=== PATIENT | male | born 1960 | race Two or more races ===

== ENCOUNTER 2016-08-23 16:07 | Emergency (ER) | payer OTHER ==
--- NOTE | 2016-08-23 17:04 | Emergency Department Record ---
History of Present Illness - General Chief complaint: Eye Problem Stated complaint: GOT A [employer] IN [employer] EYE Time Seen by Provider: 08/23/16 16:53 Source: Patient Mode of Arrival: Ambulatory Limitations: No limitations - History of Present Illness Initial comments: The patient is here due to L eye irritation for one day. He was at work yesterday and was wearing safety goggles and did get one drop of a cleaning agent in the L eye. It burned immediately and he did flush the eye out extensively. Now today the L eye is still feeling irritated. He denies any pain or visual changes. chief complaint: Eye pain Onset/Timin -: Days(s) Onset Description: Sudden Location: Left eye Place: Work If Injury: Chemical exposure Eye Symptoms: Discharge, Foreign body sensation Severity: Mild If Pain, Quality: Other Consistency: Constant Associated Symptoms: None Treatments Prior to Arrival: Irrigated eye - Related Data Visual acuity (L) = 20/: 20 Visual acuity (R) = 20/: 20 With correction: Yes Hx Tetanus Toxoid Vaccination: Yes Year of Tetanus Vaccination: 2013 Patient Tetanus UTD (within 5 yrs): Yes Home Medications Medication Instructions Recorded Confirmed Last Taken Omeprazole [Prilosec] 20 mg PO DAILY 01/25/14 08/23/16 12/10/15 Previous Rx's Medication Instructions Recorded Erythromycin Base [Erythromycin 1 apply AFFEYE QID #1 tube 08/23/16 OPTH Ointment] Allergies Allergy/AdvReac Type Severity Reaction Status Date / Time No Known Drug Allergies Allergy Verified 01/25/14 04:05 Travel Screening - Travel/Exposure Within Last 30 Days Have you traveled within the last 30 days?: No Review of Systems Constitutional: Denies: Chills, Fever Eyes: Reports: Eye discharge (very mild L eye.). Denies: Eye pain Past Medical History - SOCIAL HISTORY Smoking Status: Never smoker Alcohol Use: None Drug Use: None - RESPIRATORY Hx Respiratory Disorders: No - CARDIOVASCULAR Hx Cardio Disorders: No - NEURO Hx Neuro Disorders: No - GI Hx GI Disorders: Yes Hx Reflux: Yes - Hx Genitourinary Disorders: No - ENDOCRINE Hx Endocrine Disorders: No - MUSCULOSKELETAL Hx Musculoskeletal Disorders: No - PSYCH Hx Psych Problems: Yes Hx Anxiety: Yes - HEMATOLOGY/ONCOLOGY Hx Hematology/Oncology Disorders: No Family Medical History Any Significant Family History?: No Physical Exam - General General Appearance: Alert, Oriented x3, Cooperative, No acute distress - Head Head exam: Atraumatic, Normocephalic, Normal inspection - Eye Eye exam: Normal appearance, PERRL, Conjunctival injection (There is mild injection to the L eye. There is very mild uptake measuring 1x1 mm at the very edge of the cornea in the 3:00 position. ), EOMI Visual acuity (L) = 20/: 20 Visual acuity (R) = 20/: 20 With correction: Yes - ENT ENT exam: Normal exam, Mucous membranes moist, Normal external ear exam, Normal orophraynx, TM's normal bilaterally Course Vital Signs 08/23/16 16:34 Temperature 98.5 F Pulse Rate 76 Respiratory 20 Rate Blood Pressure 151/98 Pulse Ox 96 - Reevaluation(s) Reevaluation #1: I did explain to the patient that the cornea has no definite cordova on it. He is to use the eye ointment as directed and F/U with his Work Occupational health provider tomorrow if not better. 08/23/16 17:01 Disposition Disposition: Discharge Clinical Impression: Chemical exposure of eye Disposition: Home, Self-Care Condition: (2) Stable Instructions: Corneal Abrasion (ED) Additional Instructions: Please use the Emycin ointment as directed. Please see your Work Occupational Health provider as directed tomorrow if not better. Prescriptions: Erythromycin Base [Erythromycin OPTH Ointment] 1 apply AFFEYE QID #1 tube Forms: Patient Portal Access Time of Disposition: 17:04
== END 2016-08-23 17:14 | disposition home or self-care (01) ==
LOC: ER 16:07
DX: T65.891A Toxic effect of other specified substances, accidental (unintentional), initial encounter (principal); H57.12 Ocular pain, left eye; Y99.0 Civilian activity done for income or pay
CPT/HCPCS: 99283

== ENCOUNTER 2017-04-09 14:11 | Emergency (ER) | payer BC, OTHER ==
[2017-04-09] MEDS ORDERED: KETOROLAC 30 MG/ML VIAL IVP ONE (15:36)
[2017-04-09] MEDS ORDERED: 0.9 % SODIUM CHLORIDE 1,000 ML BAG IV ONE (15:36)
[2017-04-09] MEDS ORDERED: ONDANSETRON HCL IV 4 MG/2 ML VIAL IV ONE (15:36)
[2017-04-09 15:37] LABS: URINE APPEARANCE CLEAR; URINE BILIRUBIN NEGATIVE (NEGATIVE); URINE BLOOD MODERATE (NEGATIVE); URINE COLOR YELLOW; URINE GLUCOSE (UA) NEGATIVE (NEGATIVE); URINE KETONE NEGATIVE (NEGATIVE); URINE LEUKOCYTE ESTERASE NEGATIVE (NEGATIVE); URINE NITRITE NEGATIVE (NEGATIVE); URINE PROTEIN NEGATIVE (NEGATIVE); URINE UROBILINOGEN 0.2 E.U./dL (0.20 - 1.00)
[2017-04-09 15:47] LABS: URINE BACTERIA NONE SEEN; URINE EPITHELIAL CELLS 0 - 2 (FEW); URINE RBC >50 (NONE SEEN); URINE WBC 0 - 2 (0-2/hpf)
--- NOTE | 2017-04-09 16:00 | Emergency Department Record ---
History of Present Illness - General Chief complaint: Flank Pain Stated complaint: LOWER BACK PAIN/KIDNEY STONES Time Seen by Provider: 04/09/17 15:32 Source: Patient Mode of Arrival: Ambulatory Limitations: No limitations - History of Present Illness Initial comments: pt has severe l flank pain that had a sudden onset. he has been told in the past that he had a kiidney stone in the left kidney. he has never passed a stone. he was hurting so badly that he was shaking Onset/Timin -: Hour(s) Location: Left flank Radiation: None Severity: Moderate Severity scale (1-10): 9 Quality: Aching, Sharp, Stabbing Consistency: Constant Improves with: None Reports: Nausea/vomiting - Related Data Allergies Allergy/AdvReac Type Severity Reaction Status Date / Time No Known Drug Allergies Allergy Verified 04/09/17 15:27 Travel Screening - Travel/Exposure Within Last 30 Days Have you traveled within the last 30 days?: No - Travel/Exposure Within Last Year Have you traveled outside the [place] in the last year?: No - Additonal Travel Details Have you been exposed to anyone with a communicable illness?: No - Travel Symptoms Symptom Screening: None Review of Systems Reviewed: No additional complaints except as noted below Constitutional: Reports: As per HPI. Denies: Chills, Fever, Malaise, Night sweats, Weakness, Weight change Eyes: Reports: As per HPI. Denies: Eye discharge, Eye pain, Photophobia, Vision change ENT: Reports: As per HPI. Denies: Congestion, Dental pain, Ear pain, Epistaxis , Hearing loss, Throat pain Respiratory: Reports: As per HPI. Denies: Cough, Dyspnea, Hemoptysis, Stridor, Wheezes Cardiovascular: Reports: As per HPI. Denies: Arrhythmia, Chest pain, Dyspnea on exertion, Edema, Murmurs, Orthopnea, Palpitations, Paroxysmal nocturnal dyspnea, Rheumatic Fever, Syncope Endocrine: Reports: As per HPI. Denies: Fatigue, Heat or cold intolerance, Polydipsia, Polyuria Gastrointestinal: Reports: As per HPI. Denies: Abdominal pain, Constipation, Diarrhea, Hematemesis, Hematochezia, Melena, Nausea, Vomiting Genitourinary: Reports: As per HPI. Denies: Dysuria, Frequency, Hematuria, Incontinence, Retention, Testicular pain, Testicular mass, Urgency Musculoskeletal: Reports: As per HPI. Denies: Arthralgia, Back pain, Gout, Joint swelling, Myalgia, Neck pain Skin: Reports: As per HPI. Denies: Bruising, Change in color, Change in hair/ nails, Lesions, Pruritus, Rash Neurological: Reports: As per HPI. Denies: Abnormal gait, Confusion, Headache, Numbness, Paresthesias, Seizure, Tingling, Tremors, Vertigo, Weakness Psychiatric: Reports: As per HPI. Denies: Anxiety, Auditory hallucinations, Depression, Homicidal thoughts, Suicidal thoughts, Visual hallucinations Hematological/Lymphatic: Reports: As per HPI. Denies: Anemia, Blood Clots, Easy bleeding, Easy bruising, Swollen glands Past Medical History - SOCIAL HISTORY Smoking Status: Former smoker Alcohol Use: Rare Drug Use: None - RESPIRATORY Hx Respiratory Disorders: No - CARDIOVASCULAR Hx Cardio Disorders: No - NEURO Hx Neuro Disorders: No - GI Hx GI Disorders: Yes Hx Reflux: Yes - Hx Genitourinary Disorders: No - ENDOCRINE Hx Endocrine Disorders: No - MUSCULOSKELETAL Hx Musculoskeletal Disorders: No - PSYCH Hx Psych Problems: Yes Hx Anxiety: Yes - HEMATOLOGY/ONCOLOGY Hx Hematology/Oncology Disorders: No Family Medical History Any Significant Family History?: No Physical Exam - General General Appearance: Alert, Oriented x3, Cooperative, Mild distress - Head Head exam: Normal inspection - Eye Eye exam: Normal appearance, PERRL, EOMI Pupils: Normal accommodation - ENT ENT exam: Normal exam, Mucous membranes moist, Normal external ear exam, Normal orophraynx Ear exam: Normal external inspection. negative: External canal tenderness Nasal Exam: Normal inspection. negative: Discharge, Sinus tenderness Mouth exam: Normal external inspection, Tongue normal Teeth exam: Normal inspection. negative: Dental caries Throat exam: Normal inspection. negative: Tonsillar erythema, Tonsillar exudate - Neck Neck exam: Normal inspection, Full ROM. negative: Tenderness - Respiratory Respiratory exam: Normal lung sounds bilaterally. negative: Respiratory distress - Cardiovascular Cardiovascular Exam: Regular rate, Normal rhythm, Normal heart sounds - GI/Abdominal GI/Abdominal exam: Soft, Normal bowel sounds. negative: Tenderness - Rectal Rectal exam: Deferred - exam: Deferred - Extremities Extremities exam: Normal inspection, Full ROM, Normal capillary refill. negative: Tenderness - Back Back exam: Reports: Normal inspection, Full ROM. Denies: Muscle spasm, Rash noted, Tenderness - Neurological Neurological exam: Alert, CN II-XII intact, Normal gait, Oriented X3 - Psychiatric Psychiatric exam: Normal affect, Normal mood - Skin Skin exam: Dry, Intact, Normal color, Warm Course Vital Signs 04/09/17 15:20 Temperature 98.0 F Pulse Rate 101 H Respiratory 18 Rate Blood Pressure 155/92 Pulse Ox 97 Medical Decision Making - Lab Data Result diagrams: 04/09/17 16:03 04/09/17 16:03 Lab Results 04/09/17 Range/Units 15:30 Urine Color Yellow Urine Appearance Clear Urine pH 6.0 (5.0-8.0) Ur Specific Loyal 1.010 (1.002-1.030) Urine Protein Negative (NEGATIVE) Urine Glucose (UA) Negative (NEGATIVE) Urine Ketones Negative (NEGATIVE) Urine Blood Moderate (NEGATIVE) Urine Nitrite Negative (NEGATIVE) Urine Bilirubin Negative (NEGATIVE) Urine Urobilinogen 0.2 (0.20 - 1.00) E.U./dL Ur Leukocyte Esterase Negative (NEGATIVE) Urine RBC >50 (NONE SEEN) Urine WBC 0 - 2 (0-2/hpf) Ur Epithelial Cells 0 - 2 (FEW) Urine Bacteria None seen Disposition Disposition: Discharge Clinical Impression: Renal colic on left side, Renal lithiasis Hematuria Qualifiers: Hematuria type: unspecified type Qualified Code(s): R31.9 - Hematuria, unspecified Disposition: Home, Self-Care Condition: (1) Good Instructions: Kidney Stones (ED), Renal Colic (ED), How to Strain Your Urine ( ED) Additional Instructions: follow up with family doctor. return sooner if worse. push fluids. have repeat urine analysis next week Forms: Patient Portal Access Quality - Quality Measures Quality Measures: N/A - Blood Pressure Screening Does Patient Have Any of the Following: No Blood Pressure Classification: Hypertensive Reading Systolic Measurement: 155 Diastolic Measurement: 92 Screening for High Blood Pressure: < First Hypertensive BP, F/U Documented > [ [id number]] First Hypertensive Follow-up Interventions: Follow-up with rescreen GT 1 day and LT 4 weeks.
[2017-04-09 16:08] LABS: BASO % 0.3 % (0-6); EOS % 2.9 % (0-6); GRAN % 70.6 % (47-80); HEMATOCRIT 46.2 % (42.0-52.0); HEMOGLOBIN 15.7 gm/dl (14.0-18.0); LYMPH % 18.7 % (16-45); MEAN CORPUSCULAR HEMOGLOBIN 30.3 pg (27-33); MEAN PLATELET VOLUME 10.5 fl (7.4-10.4); MONO % 7.5 % (0-9); PLATELET COUNT 270 K/uL (130-400); RED BLOOD COUNT 5.19 M/uL (4.40-5.70); RED CELL DISTRIBUTION WIDTH 14.2 % (11.5-14.5); WHITE BLOOD COUNT W/O DIFF 7.2 K/uL (4.2-12.2)
[2017-04-09 16:20] LABS: BLOOD UREA NITROGEN 23 mg/dL (6-20); EST GLOMERULAR FILTRATION RATE > 60 mL/min
[2017-04-09 16:23] LABS: GLUCOSE,RANDOM 107 mg/dL (74-109)
--- NOTE | 2017-04-10 14:23 | CT SCAN REPORT ---
EXAM: CT OF THE ABDOMEN AND PELVIS WITHOUT CONTRAST HISTORY: LEFT LOWER BACK PAIN. TECHNIQUE: Sequential axial images were obtained from the diaphragms through the ischiorectal fossa without intravenous or oral contrast administration. FINDINGS: The visualized lung bases appear normal. The nonopacified liver, gallbladder, pancreas and spleen appear normal. The adrenal glands appear normal. There are a pair of bilateral peripelvic cysts. No CT findings suggestive of obstructive uropathy. There is mild left periureteral fat stranding of the distal left ureter. Urinary tract infection not entirely excluded. The urinary bladder appears normal. The small and large bowel appears normal. The osseous structures appear normal. There is a lipomatous lesion in the left gluteus medius muscle measuring approximately 3.2 cm. IMPRESSION: NO CT FINDINGS SUGGESTIVE OF OBSTRUCTIVE UROPATHY. THERE IS MILD LEFT PERIURETERAL FAT STRANDING INVOLVING THE DISTAL LEFT URETER. URINARY TRACT INFECTION IS CONSIDERED. THERE ARE LEFT PERIPELVIC CYSTS PRESENT. JOB NUMBER: [id number] MTDD
== END 2017-04-09 17:42 | disposition home or self-care (01) ==
LOC: ER 14:11
DX: N20.0 Calculus of kidney (principal); R11.2 Nausea with vomiting, unspecified; Z87.442 Personal history of urinary calculi
CPT/HCPCS: 74176; 80048; 81001; 85025; 96374; 96375; 99284; J1885; J2405; J7030